=== PATIENT | female | born 1965 | race Caucasian/White ===

== ENCOUNTER → 2024-04-12 06:22 | Day surgery (SDC) | payer BC, SELFPAY | LOC: GI 06:22 | PROVIDERS: ATTENDING PHYSICIAN Internal Medicine Gastroenterology | DX: Z12.11 Encounter for screening for malignant neoplasm of colon (principal); D12.0 Benign neoplasm of cecum; D12.3 Benign neoplasm of transverse colon; D12.5 Benign neoplasm of sigmoid colon; K63.5 Polyp of colon; K57.30 Diverticulosis of large intestine without perforation or abscess without bleeding; K64.0 First degree hemorrhoids; Z86.010 Personal history of colon polyps; Z98.890 Other specified postprocedural states | CPT/HCPCS: 45385; 45380; 88305 ==

== ENCOUNTER → 2024-05-24 17:15 | Outpatient (REF) | payer BC, SELFPAY | LOC: WDC 17:15 | PROVIDERS: ATTENDING PHYSICIAN Nurse Practitioner Family | DX: Z12.31 Encounter for screening mammogram for malignant neoplasm of breast (principal) | CPT/HCPCS: 77063; 77067 ==

== ENCOUNTER → 2024-09-28 12:57 | Outpatient (REF) | payer BC, SELFPAY | LOC: RAD 12:57 | PROVIDERS: ATTENDING PHYSICIAN Internal Medicine | DX: J45.41 Moderate persistent asthma with (acute) exacerbation (principal) | CPT/HCPCS: 71046 ==

== ENCOUNTER 2024-11-15 12:06 | Emergency (ER) | payer BC, SELFPAY ==
[2024-11-15 12:09] VITALS: BP 210/125
[2024-11-15 12:26] LABS: % Eosinophils 1.4 % (0-6); % Immature Granulocytes 0.2 % (0-0.5); % Lymphocytes 26.5 % (20.5-51.1); % Monocytes 6.6 % (1.7-9.3); % Neutrophils 64.3 % (42.2-75.2); Absolute Basophils 0.1 10^3/uL (0-0.2); Absolute Eosinophils 0.1 10^3/uL (0-0.7); Absolute Lymphocytes 1.4 10^3/uL (1.2-3.4); Absolute Monocytes 0.3 10^3/uL (0.1-0.6); Absolute Neutrophils 3.3 10^3/uL (1.4-6.5); Hematocrit 41.4 % (37.0-47.0); Hemoglobin 14.5 g/dL (12.0-16.0); Mean Corpuscular Volume 94.1 fL (81.0-99.0); Mean Platelet Volume 8.6 fL (7.4-10.4); Nucleated Red Blood Cells % 0 %; Platelet Count 317 10^3/uL (130-400); Red Cell Dist. Width 12.1 % (11.5-14.5); White Blood Cell Count 5.2 10^3/uL (4.8-10.8)
[2024-11-15 12:29] VITALS: BP 158/100
[2024-11-15 12:37] VITALS: BMI 26.4
[2024-11-15 12:42] LABS: COVID-19 Antigen Negative (Negative)
[2024-11-15] MEDS: NSS 1000 IV (12:52)
[2024-11-15 12:56] LABS: ALT (SGPT) 28 U/L (0-35); AST (SGOT) 35 U/L (14-36); Albumin 4.9 g/dl (3.5-5.0); Alkaline Phosphatase 114 U/L (38-126); Blood Urea Nitrogen 9 mg/dl (7-17); Calcium 9.3 mg/dl (8.4-10.2); Carbon Dioxide 22 mmol/L (22-30); Estimated Creatinine Clearance 76 ml/min; Glucose 112 mg/dl (70-99); Potassium 4.5 mmol/L (3.5-5.1); Sodium 135 mmol/L (135-145); Total Bilirubin 0.4 mg/dl (0.2-1.3); Total Protein 7.8 g/dl (6.3-8.2); eGFR > 60.00
[2024-11-15] MEDS: TESSALON PERLES 100 MG PO (13:03)
[2024-11-15 13:04] VITALS: BP 155/96
[2024-11-15 13:09] LABS: Chloride 96 mmol/L (98-107); Magnesium 1.9 mg/dl (1.6-2.3)
--- NOTE | 2024-11-15 13:28 | ED.GENMED ---
History of Present Illness
General
Chief Complaint: Cold/Flu/URI Symptoms
Source: patient
Exam Limitations: none
Time Seen by Provider: 11/15/24 12:33
Nursing documentation reviewed up to this point in time: agreed with
History of Present Illness
History of Present Illness:
Patient presents to ED secondary to 1 week history of persistent cough and shortness of breath, along with decreased appetite. Patient was evaluated at her primary care physician's office who ordered outpatient chest x-ray. As patient was in the
waiting room, patient noted increased heart rate with palpitations, and decided that she wanted to checked out in ED. Denies fever or chills. Denies nausea, vomiting, or diarrhea. Denies dizziness. Denies chest pain. Denies leg pain or
swelling. Denies back pain. Denies recent sick contact. Denies recent change in medications or diet. Patient does not smoke, but does drink alcohol daily.
Past History
Past History
ED Past Medical History: HTN and Hypothyroidism
ED Past Surgical History: None
Social History
Personal:
Living: with family
Employment: Employed
Review of Systems
Review of Systems
Allergies reviewed?: Yes
All Other Systems: ROS reviewed and negative except as documented in HPI and ROS
Constitutional: Reports no symptoms; Denies fever
EENT: Reports no symptoms
Respiratory: Reports cough
Cardiac: Reports palpitations
ABD/GI: Reports no symptoms; Denies vomiting or diarrhea
: Reports no symptoms
Musculoskeletal: Reports no symptoms
Skin: Reports no symptoms
Neurological: Reports no symptoms; Denies dizzy or headache
Phy Exam
Physical Exam
Physical Exam:
Physical Exam
General: no apparent distress, not acutely ill. afebrile
Head: nc/at. eomi
Neck: supple. normal range of motion.
Heart: tachycardic, no murmur. equal radial pulses.
Lungs: no acute respiratory distress. clear bilaterally
Abdomen: normal bowel sounds. not tender.
Neuro: alert and oriented. no focal neurological deficits
Skin: no rash
Psychiatric: well kept. interactive and cooperative
Extremities: no edema. no calf tenderness.
Course
Orders/Labs/Results
Orders:
Orders
11/15/24 12:11
Electrocardiogram (*1) Urgent
Reason for Study: Tachycardia
EKG- Treatment ONCE
11/15/24 12:20
COVID-19 Antigen Urgent
Source: Nasal Swab
Complete Blood Count/With Diff Urgent
Comprehensive Metabolic Panel Urgent
Magnesium Urgent
Comment: ADD
Influenza A+B Rapid Molecular Urgent
JERALD Source: Nasal Swab
Specimen Description:
11/15/24 12:45
Add On- LAB Urgent
Tests Added?: magnesium
0.9% Sodium Chloride 1000 ml [Nss] 1,000 ml IV BOLUS
Benzonatate [Tessalon Perles] 100 mg PO NOW STA
11/15/24 12:55
CR Chest - 2 Views Urgent
Comment:
Reason For Exam: cough/sob
Abnormal Lab Results
11/15/24
12:20
MCH 33.0 H pg
(27.0-31.0)
Chloride 96 L mmol/L
(98-107)
Glucose 112 H mg/dl
(70-99)
11/15/24 12:20
11/15/24 12:20
Vital Signs
Initial and Last Documented VS:
Initial Vital Signs
Temp Pulse Resp BP Pulse Ox
97.9 F 145 18 210/125 97
11/15/24 12:09 11/15/24 12:09 11/15/24 12:09 11/15/24 12:09 11/15/24 12:09
Last Documented Vital Signs
Temp Pulse Resp BP Pulse Ox
97.9 F 116 21 158/96 93
11/15/24 12:09 11/15/24 14:45 11/15/24 14:30 11/15/24 14:10 11/15/24 14:45
MDM/Problems Addressed
MDM/Problems Addressed:
Chest x-ray: No acute findings. Initial tachycardia and hypotension, significant improved during observation with IV fluids.
History and exam consistent with likely viral pneumonia versus acute bronchitis. Steroids along with antibiotics, i.e. Levaquin, already prescribed by PCP, which patient will start upon discharge.
*EKG
Interpreted by ED Provider?: Yes
EKG Intrepretation Date: 11/15/24
Heart Rate: 135
Rate: tachycardiac
Rhythm: sinus
Marceline: normal axis
Interval: normal interval
QRS Pattern: normal QRS
*Critical Care Note
Total Time (30-74mins, 75-104mins- exclusive of procedures): Not Applicable
ED Attending Note
-
Portions of this chart may have been created with voice recognition software.� Occasional wrong word or��sound alike� substitutions may have occurred due to the inherent limitations of voice recognition software.
Discharge Plan
Departure
Patient Disposition: Home (Routine Discharge)
Date of Disposition: 11/15/24
Time of Disposition: 15:08
Patient with high blood pressure during this ER visit?: Yes
Condition: Good
Discharge Problem:
Acute bronchitis
Instructions: Acute Bronchitis, Adult (DC)
Prescriptions:
New
benzonatate 100 mg capsule
100 mg PO BID PRN (Reason: Cough) Qty: 14 0RF
No Action
levothyroxine 100 mcg Tablet
100 mcg PO DAILY
lisinopril 40 mg Tablet
40 mg PO DAILY
Referrals:
Omi Wilson MD [Family Provider] -
Activity Restrictions/Additional Instructions:
As discussed, please follow-up with your primary care physician for reevaluation. Your prescription has been sent electronically to [facility] in [place].
Interventions
Interventions:
*Risk Screen - Suicide Last Done: 11/15/24 12:38
*General Assessment Last Done: 11/15/24 12:38
*Neglect/Abuse Screening Last Done: 11/15/24 12:38
*Nursing Disposition Last Done: 11/15/24 15:38
ED- Pulmonary Assessment Last Done: 11/15/24 12:38
Discharge Date and Time
Discharge Date/Time: 11/15/24 15:38
Print Language: TRINIDADIAN
[2024-11-15 14:10] VITALS: BP 158/96
== END 2024-11-15 15:38 | disposition home or self-care (01) ==
LOC: EMR 12:06
PROVIDERS: Student in an Organized Health Care Education/Training Program; EMERGENCY PHYSICIAN Emergency Medicine; FAMILY PHYSICIAN Internal Medicine
DX: J20.9 Acute bronchitis, unspecified (principal); I10 Essential (primary) hypertension; E03.9 Hypothyroidism, unspecified
CPT/HCPCS: 99285; 96360; 71046; 80053; 83735; 85025; 87502; 87811; 93005

== ENCOUNTER → 2025-03-28 09:37 | Outpatient (REF) | payer BC, SELFPAY | LOC: RAD 09:37 | PROVIDERS: ATTENDING PHYSICIAN Otolaryngology; FAMILY PHYSICIAN Internal Medicine | DX: K21.9 Gastro-esophageal reflux disease without esophagitis (principal); R13.12 Dysphagia, oropharyngeal phase | CPT/HCPCS: 74221 ==